=== PATIENT | female | born 1995 | race Caucasian/White ===

== ENCOUNTER 2017-03-01 23:09 | Emergency (ER) | payer SELFPAY | END 2017-03-02 00:25 | disposition home or self-care (01) | LOC: FER 23:09 | DX: S60.212A Contusion of left wrist, initial encounter (principal); S60.211A Contusion of right wrist, initial encounter; S70.212A Abrasion, left hip, initial encounter; M54.2 Cervicalgia; R07.9 Chest pain, unspecified; M54.5 Low back pain; F17.210 Nicotine dependence, cigarettes, uncomplicated; V47.5XXA Car driver injured in collision with fixed or stationary object in traffic accident, initial encounter; Y92.410 Unspecified street and highway as the place of occurrence of the external cause | CPT/HCPCS: 93005; J1885 ==